=== PATIENT | female | born 1940 | race Native Hawaiian/Other Pacific Islander ===

== ENCOUNTER 2020-02-04 13:43 | Emergency (ER) | payer OTHER ==
[~2020-02-04] VITALS: Ht 157.5 cm; Wt 86.2 kg
[2020-02-04 13:38] VITALS: BP 146/71; TEMP 98.7
[~2020-02-04 13:43] MED LIST: OMEPRAZOLE DR40 MG PO
[2020-02-04] MEDS ORDERED: FURO40TA93 PO (13:44)
[2020-02-04] MEDS ORDERED: POTASSIUM CHLO20 ME1 PO (13:44)
[2020-02-04] MEDS ORDERED: AMLODIPINE BESYLATE PO (13:45)
[2020-02-04 14:13] LABS: PLATELET COUNT 194 K/uL (152-353)
[2020-02-04 14:22] LABS: POTASSIUM 3.5 mmol/L (3.6-5.2); SODIUM 139 mmol/L (136-145)
== END 2020-02-04 14:28 | disposition home or self-care (01) ==
LOC: ED 13:43
PROVIDERS: Family Medicine
DX: I20.8 Other forms of angina pectoris (principal); R51 Headache
CPT/HCPCS: 80053; 82550; 84484; 85027; 93005; 99283; 99284

== ENCOUNTER 2020-02-19 07:09 | Emergency (ER) | payer OTHER ==
[~2020-02-19] VITALS: Ht 157.5 cm; Wt 88.5 kg
[2020-02-19 07:09] VITALS: TEMP 98
[~2020-02-19 07:09] MED LIST changes: +AMLODIPINE BESYLATE PO; +FURO40TA93 PO; +POTASSIUM CHLO20 ME1 PO
[2020-02-19 08:06] LABS: PLATELET COUNT 185 K/uL (152-353)
[2020-02-19 08:20] LABS: POTASSIUM 3.7 mmol/L (3.6-5.2)
[2020-02-19 10:10] VITALS: BP 126/60
== END 2020-02-19 10:15 | disposition still patient (30) ==
LOC: ED 07:09
PROVIDERS: Family Medicine
PROC: 2W3DX1Z Immobilization of Left Lower Arm using Splint (ICD-10-PCS; principal; 2020-02-19)
DX: S00.83XA Contusion of other part of head, initial encounter (principal); S40.011A Contusion of right shoulder, initial encounter; S60.212A Contusion of left wrist, initial encounter; S01.81XA Laceration without foreign body of other part of head, initial encounter; S42.291A Other displaced fracture of upper end of right humerus, initial encounter for closed fracture; S52.592A Other fractures of lower end of left radius, initial encounter for closed fracture; S00.81XA Abrasion of other part of head, initial encounter; S00.12XA Contusion of left eyelid and periocular area, initial encounter; W18.39XA Other fall on same level, initial encounter; Y92.89 Other specified places as the place of occurrence of the external cause
CPT/HCPCS: 80053; 85027; 99283

== ENCOUNTER 2020-03-31 11:46 | Outpatient (CLI) | payer OTHER ==
[2020-03-31 12:02] LABS: PLATELET COUNT 205 K/uL (152-353)
== END 2020-03-31 22:39 | disposition home or self-care (01) ==
LOC: LAB 11:46
PROVIDERS: ATTEND Family Medicine
DX: E11.9 Type 2 diabetes mellitus without complications (principal); E83.52 Hypercalcemia; D64.89 Other specified anemias; E53.8 Deficiency of other specified B group vitamins
CPT/HCPCS: 80048; 82306; 82607; 83036; 83735; 83970; 85027

== ENCOUNTER 2020-11-22 11:16 | Emergency (ER) | payer OTHER ==
[~2020-11-22] VITALS: Ht 157.5 cm; Wt 88.9 kg
[2020-11-22 13:30] VITALS: BP 122/79; TEMP 97.7
== END 2020-11-22 13:30 | disposition home or self-care (01) ==
LOC: ED 11:16
DX: J06.9 Acute upper respiratory infection, unspecified (principal); Z20.822 Contact with and (suspected) exposure to COVID-19
CPT/HCPCS: 87635; 99282; U0003

== ENCOUNTER 2022-09-13 05:20 | Emergency (ER) | payer OTHER ==
[~2022-09-13] VITALS: Ht 157.5 cm; Wt 90.7 kg
[2022-09-13 05:20] VITALS: BP 135/67; TEMP 97
[2022-09-13 06:04] LABS: PLATELET COUNT 157 K/uL (152-353)
[2022-09-13 06:45] LABS: POTASSIUM 3.7 mmol/L (3.6-5.2)
== END 2022-09-13 09:08 | disposition home or self-care (01) ==
LOC: ED 05:20
PROVIDERS: Emergency Medicine Emergency Medical Services
DX: R55 Syncope and collapse (principal); J18.9 Pneumonia, unspecified organism; E16.1 Other hypoglycemia
CPT/HCPCS: 36415; 80053; 81002; 82550; 83735; 84484; 85027; 85610; 87040; 93005; 96361; 96365; 99284; J3490; Q9963